=== PATIENT | female | born 1955 | race Caucasian/White ===

== ENCOUNTER 2019-08-16 12:48 | Emergency (ER) | payer MEDICARE, MEDICAID ==
[~2019-08-16 12:48] MED LIST: Iopamidol 370 76% 100 ML VIAL ONE
[2019-08-16] MEDS ORDERED: Morphine 4 MG/ML VIAL ONE (13:58)
[2019-08-16] MEDS ORDERED: Ondansetron PF 4 MG/2 ML Vial ONE (13:58)
[2019-08-16 14:00] LABS: #Eosinphils 0.2 thou/uL (0.0-0.7); #Lymphocytes 2.6 thou/uL (1.20-3.40); #Neutrophils 8.8 thou/uL (1.40-6.50); %Basophils 0.3 % (0.0-1.0); %Eosinophils 1.6 % (0.0-10.0); %Lymphocytes 20.6 % (21.0-51.0); %Monocytes 7.8 % (0.0-10.0); %Neutrophils 69.7 % (42.0-75.0); Hemoglobin 15.4 g/dL (12.0-16.0); Mean Corpuscular HGB CONC 31.9 g/dL (32.0-36.0); Mean Corpuscular Hemoglobin 29.1 pg (27.0-31.0); Mean Corpuscular Volume 91.4 fL (78.0-98.0); Platelet Count 313 thou/uL (130-400); RBC Distribution Width 12.4 % (11.5-14.5); Red Blood Cell (RBC) Count 5.27 mill/uL (4.20-5.40); White Blood Cell (WBC) Count 12.6 thou/uL (4.8-10.8)
[2019-08-16 14:16] LABS: ALT (SGPT) 12 U/L (8-55); AST (SGOT) 16 U/L (5-34); Albumin 4.2 g/dL (3.4-4.8); Alkaline Phosphatase 101 U/L (40-110); Anion Gap 17 mmol/L (10-20); BUN (Urea Nitrogen) 11 mg/dL (9.8-20.1); Bilirubin, Total 0.9 mg/dL (0.2-1.2); Calc. Creatinine Clearance 0 mL/min (70-130); Calcium 9.8 mg/dL (7.8-10.44); Carbon Dioxide 23 mmol/L (23-31); Chloride 103 mmol/L (98-107); Estimated GFR-MDRD 68; Globulin 3.7 g/dL (2.4-3.5); Glucose 89 mg/dL (80-115); Lipase 8 U/L (8-78); Potassium 4.2 mmol/L (3.5-5.1); Protein, Total 7.9 g/dL (6.0-8.3); Sodium 139 mmol/L (136-145)
--- NOTE | 2019-08-16 15:15 | CT ---
CT ABDOMEN WITH CONTRAST CT PELVIS WITH CONTRAST: DATE: 08/16/2019 HISTORY: 64-year-old female with abdominal pain COMPARISON: none TECHNIQUE: IV injection of iodinated contrast media: administered. Oral contrast media:Not administered FINDINGS: Atherosclerotic plaque at proximal and mid abdominal aorta. Plaque causing high-grade stenosis of [place] of celiac artery, and especially superior mesenteric artery SMA appears to be diminutive. Stenosis at origins of bilateral renal arteries apparently severe on the left. [place] distal abdomina l aorta is heavily calcified and chronically occluded. There is aortobifemoral graft. No free fluid or free air within abdominal cavity or pelvic cavity. Subsegmental atelectasis posterio r base of right lower lobe including at right posterior costophrenic angle. No pleural effusion. No small bowel dilation. No pyelonephritis. Left kidney mildly enlarged. Right kidney somewhat small. Mi ld to moderate left hydronephrosis. Minimal right hydronephrosis. Normal urinary bladder. Normal appendix. Descending and sigmoid colonic diverticulosis without diverticulitis. No major pathology of liver, pancreas, adrenals, or spleen. Nonspecific mild proximal pancreatic ductal dilation. Large number of small gallstones. No pericholecystic edema. IMPRESSION: 1) status post aortobifemoral bypass graft surgery. 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 3) cholelithiasis. 4) mild left hydronephrosis. Cause unknown. 5) small consolidation at posterior base of right lower lobe. Probably atelectasis. 6) discrepancy in sizes between the left and right kidneys.
[2019-08-16 15:42] LABS: Bilirubin Negative (Negative); Blood, Urine Trace (Negative); Clarity Clear (Clear); Glucose, Urine (Dipstick) Negative (Negative); Leukocyte Negative (Negative); Nitrite Negative (Negative); Protein, Urine (Dipstick) Negative (Neg-Trace)
[2019-08-16 15:44] LABS: Bacteria/HPF None Seen HPF (None Seen); RBC/HPF 0-3 HPF (0-3); Squamous Epithelial 0-3 HPF (0-3); WBC/HPF None Seen HPF (0-3)
[2019-08-16] MEDS ORDERED: Sodium Chloride 0.9% 1,000 ML ONE (16:07)
== END 2019-08-16 18:03 | disposition home or self-care (01) ==
LOC: MADERS 12:48
DX: S39.011A Strain of muscle, fascia and tendon of abdomen, initial encounter (principal); E78.5 Hyperlipidemia, unspecified; E78.00 Pure hypercholesterolemia, unspecified; I10 Essential (primary) hypertension; J44.9 Chronic obstructive pulmonary disease, unspecified; F17.210 Nicotine dependence, cigarettes, uncomplicated; Z79.899 Other long term (current) drug therapy; Z79.01 Long term (current) use of anticoagulants; X50.9XXA Other and unspecified overexertion or strenuous movements or postures, initial encounter
CPT/HCPCS: 36415; 74177; 80053; 81003; 81015; 83605; 83690; 85025; 93005; 96361; 96374; 96375; J2270; J2405; J7050; Q9967